=== PATIENT | male | born 1960 | race Caucasian/White ===

== ENCOUNTER 2017-04-21 13:19 | Emergency (ER) | payer OTHER ==
[~2017-04-21] VITALS: Ht 157.5 cm; Wt 89.0 kg
[2017-04-21 13:21] VITALS: Ht 157.5 cm; Wt 89.0 kg
--- NOTE | 2017-04-21 14:54 | RADRPT ---
PROCEDURE: XR Knee. CLINICAL INDICATION: Knee pain TECHNIQUE: Three views of the right knee are available for review. COMPARISON: None available FINDINGS: The medial and lateral femorotibial compartments are preserved mild narrowing and marginal productiv e changes seen at the patellofemoral compartment. There is no acute osseous abnormality, marginal er osion or evidence of fracture. Small joint effusion. IMPRESSION: 1. No acute osseous abnormality or evidence of fracture. 2. Mild patellofemoral compartment arthrosis. 3. Joint effusion. RPTAT: EE .Jean Cagle MD, Date Time Electronically viewed and signed by .Jean Cagle MD, MD on 04/21/2017 14:53 .d/
[2017-04-21] MEDS ORDERED: IBUP-1542 PO (15:36)
--- NOTE | 2017-04-21 15:46 | ERD ---
ER Documentation Chief Complaint Date/Time DATE: 04/21/17 TIME: 15:40 Chief Complaint RIGHT KNEE AFTER A FALL HPI 57-year-old male patient with no significant past medical history presents to the ED complaining of a right knee injury. Reports that he was on a step stool at work and states that he accidentally tripped and his right knee locked. Describes the pain as sharp and rates it a 6 out of 10. Denies any head or neck injuries. Denies any loss of consciousness. Denies any weakness, numbness or tingling, loss of sensation, loss of range of motion, fever, chills , nausea, vomiting. ROS All systems reviewed and are negative except as per history of present illness. Medications Home Meds Active Scripts Ibuprofen* (Motrin*) 600 Mg Tab, 600 MG PO Q6, #30 TAB Prov:PARESH HANSEN PA-C 04/21/17 PMhx/Soc Medical and Surgical Hx: pt denies Medical Hx, pt denies Surgical Hx Hx Alcohol Use: No Hx Substance Use: No Hx Tobacco Use: No Smoking Status: Never smoker Physical Exam Vitals Vital Signs Date Time Temp Pulse Resp B/P Pulse Ox O2 Delivery O2 Flow Rate FiO2 04/21/17 13:21 98.1 89 18 130/89 99 Physical Exam Const: [id number], well-nourished. In no acute distress. Head: Atraumatic, normocephalic Eyes: Normal Conjunctiva without injection ENT: Normal external ear, nose and mouth. Neck: Full range of motion. No meningismus. Resp: Clear to auscultation bilaterally. No wheezing, rhonchi, rales, or crackles. No accessory muscle use. No retractions. Cardio: Regular rate and rhythm, no murmurs Skin: No petechiae or rashes Back: No midline tenderness. No CVA tenderness. Ext: No cyanosis, or edema. Cap refill less than 2 seconds. Distal pulses intact bilaterally. Tenderness to palpation of lateral aspect of right knee and posterior knee. Slight edema noted on the right lateral aspect of knee. No erythema. No fluctuance, induration. Limited range of motion due to pain of the right knee. Neur: Awake and alert. Normal gait and coordination. Muscle strength 5/5. Sensation intact bilaterally. Psych: Normal Mood and Affect Procedures/MDM 57-year-old male patient with no significant past medical history presents the ED complaining of a right knee injury that occurred at work as he was trying to get off a step stool and accidentally locked his right knee. Patient is afebrile and nontoxic-appearing. Patient has normal vital signs. A right knee x-ray was ordered to further evaluate patient. PROCEDURE: XR Knee. CLINICAL INDICATION: Knee pain TECHNIQUE: Three views of the right knee are available for review. COMPARISON: None available FINDINGS: The medial and lateral femorotibial compartments are preserved mild narrowing and marginal productive changes seen at the patellofemoral compartment. There is no acute osseous abnormality, marginal erosion or evidence of fracture. Small joint effusion. IMPRESSION: 1. No acute osseous abnormality or evidence of fracture. 2. Mild patellofemoral compartment arthrosis. 3. Joint effusion. Patient is placed in a right knee immobilizer. Crutches are given to patient to help with ambulation. Splint Assessment: Neurovascularly intact pre and post splint placement with good fit. Joint effusion was noted on right knee x-ray. At this time a ligament or meniscus injury cannot be ruled out. Patient was strictly instructed to follow- up with an orthopedic physician for further evaluation and treatment and obtain an MRI. Patient's extremity symptoms have stabilized while they have been evaluated in the department and are appropriate for outpatient follow up. No evidence of fractures, dislocations, compartment syndrome, neurologic injury, vascular injury, open joint, open fracture, tendon laceration, septic arthritis , osteomyelitis, DVT, foreign body, or other emergent conditions. Discharge medications: Ibuprofen Follow up with primary care physician in 1-2 days for a referral to orthopedic physician. Instructed patient to return to the ED sooner for any worsening symptoms. Patient's questions were answered. Patient understood and agreed with discharge plan. Patient discharged stable. Departure Diagnosis: Primary Impression: Knee injury Encounter type: initial encounter Laterality: right Qualified Code: S89.91XA - Knee injury, right, initial encounter Condition: Stable Patient Instructions: Reducing Knee Pain and Swelling, Knee Pain, Meniscus Injury (Possible), Knee Pain, Uncertain Cause, Knee Effusion Referrals: [facility] YOU HAVE RECEIVED A MEDICAL SCREENING EXAM AND THE RESULTS INDICATE THAT YOU DO NOT HAVE A CONDITION THAT REQUIRES URGENT TREATMENT IN THE EMERGENCY DEPARTMENT. FURTHER EVALUATION AND TREATMENT OF YOUR CONDITION CAN WAIT UNTIL YOU ARE SEEN IN YOUR DOCTORS OFFICE WITHIN THE NEXT 1-2 DAYS. IT IS YOUR RESPONSIBILITY TO MAKE AN APPOINTMENT FOR FOLOW-UP CARE. IF YOU HAVE A PRIMARY DOCTOR --you should call your primary doctor and schedule an appointment IF YOU DO NOT HAVE A PRIMARY DOCTOR YOU CAN CALL OUR PHYSICIAN REFERRAL HOTLINE AT IF YOU CAN NOT AFFORD TO SEE A PHYSICIAN YOU CAN CHOSE FROM THE FOLLOWING [facility] [address] [facility] [address] [facility] [address] [facility] [address] [facility] [address] [facility] [facility] [address] [facility] YOU HAVE RECEIVED A MEDICAL SCREENING EXAM AND THE RESULTS INDICATE THAT YOU DO NOT HAVE A CONDITION THAT REQUIRES URGENT TREATMENT IN THE EMERGENCY DEPARTMENT. FURTHER EVALUATION AND TREATMENT OF YOUR CONDITION CAN WAIT UNTIL YOU ARE SEEN IN YOUR DOCTORS OFFICE WITHIN THE NEXT 1-2 DAYS. IT IS YOUR RESPONSIBILITY TO MAKE AN APPOINTMENT FOR FOLOW-UP CARE. IF YOU HAVE A PRIMARY DOCTOR --you should call your primary doctor and schedule and appointment IF YOU DO NOT HAVE A PRIMARY DOCTOR YOU CAN CALL OUR PHYSICIAN REFERRAL HOTLINE AT . IF YOU CAN NOT AFFORD TO SEE A PHYSICIAN YOU CAN CHOSE FROM THE FOLLOWING [facility] INSTITUTIONS: [facility] [address] [place] [address] [facility] [address] [place] [address] [facility] [address] [place] [address] [facility] 7 a.m.- 11 p.m. Every Day of the Week NO APPOINTMENT OR AUTHORIZATION NEEDED SO [facility] Hours: Mon-Fri 9:00 AM - 5:00 PM Additional Instructions: Visite a mccloud maritza ott para un EXAMEN para dileep remisin a un mddiaz ortop dico para mccloud evaluacin y tratamiento. Regrese a estas instalaciones si no se mejora magen esperbamos o magen le dijimos. PARESH HANSEN PA-C Apr 21, 2017 15:46 PARESH HANSEN PA-C Apr 21, 2017 15:46
== END 2017-04-21 16:07 | disposition home or self-care (01) ==
LOC: FTE 13:19
DX: S89.91XA Unspecified injury of right lower leg, initial encounter (principal); W01.198A Fall on same level from slipping, tripping and stumbling with subsequent striking against other object, initial encounter; Y92.89 Other specified places as the place of occurrence of the external cause
CPT/HCPCS: 73562